=== PATIENT | female | born 1945 | race Caucasian/White ===

== ENCOUNTER 2018-02-03 15:41 | Emergency (ER) | payer MEDICARE ==
--- NOTE | 2018-02-03 16:57 | RAD ---
INDICATION: Left forefoot pain after trip and fall injury 5 days earlier COMPARISON: Similar x-ray dated June 10, 2011 TECHNIQUE: 3 views of the left foot were obtained. FINDINGS: At the proximal phalanx of the left fourth toe, best depicted on the oblique view images, there is a lucent line spanning the diaphysis and proximal metaphysis of the bone. Otherwise the remaining adequately corticated bones are properly aligned. Joint spaces appear maintained. Stable degenerative changes include enthesophyte formation at the insertion site of the Achilles tendon and origin of the plantar fascia on the calcaneal tubercle. IMPRESSION: POSSIBLE NONDISPLACED FRACTURE INVOLVING THE PROXIMAL POLE OF THE LEFT FOURTH TOE PROXIMAL PHALANX.
--- NOTE | 2018-02-03 16:59 | ED ---
Lower Extremity - HPI Summary HPI Summary: Pt. is a 72 y.o female who presents to the ER for a left toe/foot injury that occurred 6 days ago. Pt. states she tripped in her bedroom and hit left foot off of dresser. Pt. states she is able to ambulate but with pain. Pt. presents today because pain is not improving. Symptoms are mild in severity. Walking and touching affected area makes symptoms worse. Rest makes symptoms better. - History of Current Complaint Chief Complaint: EDExtremityLower Stated Complaint: LT FT TOE INJURY Time Seen by Provider: 02/03/18 15:58 Hx Obtained From: Patient Mechanism Of Injury: Other - Hit left foot off of dresser Onset of Pain: Days - 6 Onset/Duration: Days - 6 Severity Initially: Mild Severity Currently: Mild Pain Intensity: 6 Timing: Intermittent Location: Other - Left foot and digits Character Of Pain: Throbbing Associated Signs And Symptoms: Positive: Swelling, Bruising Aggravating Factor(s): Standing, Ambulation Alleviating Factor(s): Rest Able to Bear Weight: Yes - with pain - Risk Factors DVT Risk Factors: Negative Septic Arthritis Risk Factor: Negative - Allergies/Home Medications Allergies/Adverse Reactions: Allergies Allergy/AdvReac Type Severity Reaction Status Date / Time MS Peanut-containing Drug Allergy Hives/Diff. Verified 02/03/18 16:14 Products Breathing/I [Peanut-containing Drug tching Products] PMH/Surg Hx/FS Hx/Imm Hx Previously Healthy: Yes Endocrine/Hematology History: Denies: Hx Diabetes, Hx Anemia Cardiovascular History: Reports: Hx Hypercholesterolemia, Hx Hypertension Denies: Hx Pacemaker/ICD GI History: Reports: Hx Gastroesophageal Reflux Disease, Hx Hiatal Hernia Denies: Hx Jaundice History: Denies: Hx Renal Disease Musculoskeletal History: Reports: Hx Osteoporosis, Other Musculoskeletal History - 1983-RUPTURED DISC- HAD INJECTION FOR Sensory History: Reports: Hx Contacts or Glasses Denies: Hx Hearing Aid Opthamlomology History: Reports: Hx Contacts or Glasses Psychiatric History: Reports: Hx Depression - SLIGHT WITH ONSET WITH NEW DIAGNOSIS Denies: Hx Panic Disorder - Cancer History Cancer Type, Location and Year: COLON CANCER WITH PARTIAL COLONECTOMY Hx Chemotherapy: No - Surgical History Surgery Procedure, Year, and Place: CHOLECYSTECTOMY 1990. TONSILLECTOMY. HYSTERECTOMY 1974. BREAST BIOPSY BENIGN 2003. TOOTH EXTRACTIONS 2006. PARTIAL COLONECTOMY 2016 Hx Anesthesia Reactions: No Infectious Disease History: No Infectious Disease History: Denies: Traveled Outside the [place] in Last 30 Days - Social History Alcohol Use: None Substance Use Type: Reports: None Smoking Status (MU): Former Smoker Type: Cigarettes Amount Used/How Often: 1 PACK EVERY 2 DAYS X 23 YEARS Have You Smoked in the Last Year: No Review of Systems Constitutional: Negative Positive: Other - Left foot and toe pain Positive: Bruising All Other Systems Reviewed And Are Negative: Yes Physical Exam Triage Information Reviewed: Yes Vital Signs On Initial Exam: Initial Vitals Temp Pulse Resp BP Pulse Ox 98.6 F 77 20 141/71 96 02/03/18 15:44 02/03/18 15:44 02/03/18 15:44 02/03/18 15:44 02/03/18 15:44 Vital Signs Reviewed: Yes Appearance: Positive: Well-Appearing Skin: Positive: Warm, Dry Head/Face: Positive: Normal Head/Face Inspection Eyes: Positive: Normal Musculoskeletal: Positive: Other - Mild edema and ecchymosis noted to the distal left foot. Pain on palpation to the left 5th, 4th and 3rd digits. No laceraiton. No signs of infection. No proximal ankle, knee or hip pain. No calf tenderness or edema. Neurological: Positive: Normal Psychiatric: Positive: Normal AVPU Assessment: Alert Diagnostics - Vital Signs Vital Signs Temp Pulse Resp BP Pulse Ox 02/03/18 15:44 98.6 F 77 20 141/71 96 - Laboratory Lab Statement: Any lab studies that have been ordered have been reviewed, and results considered in the medical decision making process. Lower Extremity Course/Dx - Course Course Of Treatment: Pt. presenting with a minor foot/toe injury. Xrays per myself and radiology show a fracture to the proximal 4th digit of left foot. Results discussed with pt. Bruno tape and post op shoe placed. Pt. was given INFO for ortho. for close f.u. Work excuse given. Advised to ice and elevate intermittently. Tylenol or Motrin for pain as directed. Pt. understands and agrees with plan. - Diagnoses Differential Diagnosis/HQI/PQRI: Positive: Fracture (Closed), Sprain, Strain Provider Diagnoses: Toe fracture Discharge - Sign-Out/Discharge Documenting (check all that apply): Discharge - Discharge Plan Condition: Good Disposition: HOME Patient Education Materials: Toe Fracture (ED) Forms: *Work Release Referrals: Juan Lopez MD [Medical Doctor] - Yonis Almodovar MD [Primary Care Provider] - Additional Instructions: Call orthopedics for a close follow up appointment Wear splint for comfort Ice and elevate intermittently Activity as tolerated Tylenol or Motrin for pain as directed Return to ER if symptoms change or worsen - Billing Disposition and Condition Condition: GOOD Disposition: HOME
[2018-02-03 18:10] VITALS: BP 142/72
== END 2018-02-03 18:08 | disposition home or self-care (01) ==
LOC: ED 15:41
DX: S92.512A Displaced fracture of proximal phalanx of left lesser toe(s), initial encounter for closed fracture (principal); W01.0XXA Fall on same level from slipping, tripping and stumbling without subsequent striking against object, initial encounter; Y92.9 Unspecified place or not applicable; F17.210 Nicotine dependence, cigarettes, uncomplicated
CPT/HCPCS: 99282

== ENCOUNTER 2018-08-03 19:53 | Emergency (ER) | payer MEDICARE ==
[2018-08-03] MEDS ORDERED: Diazepam TAB(*) 5 MG PO ONE (22:11)
--- NOTE | 2018-08-03 23:05 | ED ---
Back Pain - HPI Summary HPI Summary: Patient complains of backache 1 week, worse today. Pain described as sharp, no radiation, no urinary retention, no change in bowel movement. Denies truma, fever, cough, sore sore throat, CP, SOB, N/V/D, abdominal pain, change in urine , vaginal symptoms, change in BM. Medical history is HTN, HDL, GERD. - History of Current Complaint Chief Complaint: EDBackInjuryPain Stated Complaint: BACK PAIN Time Seen by Provider: 08/03/18 21:26 Hx Obtained From: Patient Onset/Duration: Sudden Onset Onset/Duration: Started Days Ago Timing: Constant Back Pain Location: Is Discrete @ Severity Initially: Moderate Severity Currently: Moderate Pain Intensity: 8 Pain Scale Used: 0-10 Numeric Character: Sharp Aggravating Symptom(s): Movement Alleviating Symptom(s): Position Associated Signs And Symptoms: Positive: Negative - Allergies/Home Medications Allergies/Adverse Reactions: Allergies Allergy/AdvReac Type Severity Reaction Status Date / Time peanut Allergy Hives, Verified 08/03/18 20:38 difficulty breathing, and itching PMH/Surg Hx/FS Hx/Imm Hx Endocrine/Hematology History: Denies: Hx Diabetes, Hx Anemia Cardiovascular History: Reports: Hx Hypercholesterolemia, Hx Hypertension Denies: Hx Pacemaker/ICD GI History: Reports: Hx Gastroesophageal Reflux Disease, Hx Hiatal Hernia Denies: Hx Jaundice History: Denies: Hx Renal Disease Musculoskeletal History: Reports: Hx Osteoporosis, Other Musculoskeletal History - 1983-RUPTURED DISC- HAD INJECTION FOR Sensory History: Reports: Hx Contacts or Glasses Denies: Hx Hearing Aid Opthamlomology History: Reports: Hx Contacts or Glasses Psychiatric History: Reports: Hx Depression - SLIGHT WITH ONSET WITH NEW DIAGNOSIS Denies: Hx Panic Disorder - Cancer History Cancer Type, Location and Year: COLON CANCER WITH PARTIAL COLONECTOMY Hx Chemotherapy: No - Surgical History Surgery Procedure, Year, and Place: CHOLECYSTECTOMY 1990. TONSILLECTOMY. HYSTERECTOMY 1974. BREAST BIOPSY BENIGN 2003. TOOTH EXTRACTIONS 2006. PARTIAL COLONECTOMY 2016 Hx Anesthesia Reactions: No - Immunization History Immunizations Up to Date: Yes Infectious Disease History: No Infectious Disease History: Denies: Traveled Outside the [place] in Last 30 Days - Social History Alcohol Use: None Substance Use Type: Reports: None Smoking Status (MU): Former Smoker Type: Cigarettes Amount Used/How Often: 1 PACK EVERY 2 DAYS X 23 YEARS Have You Smoked in the Last Year: No Review of Systems Constitutional: Negative Eyes: Negative ENT: Negative Cardiovascular: Negative Respiratory: Negative Gastrointestinal: Negative Genitourinary: Negative Musculoskeletal: Other Skin: Negative Neurological: Negative Psychological: Normal All Other Systems Reviewed And Are Negative: Yes Physical Exam - Summary Physical Exam Summary: Paraspinal muscles of T-spine. PMS intact distally in bilateral lower extremities. Triage Information Reviewed: Yes Vital Signs On Initial Exam: Initial Vitals Temp Pulse Resp BP Pulse Ox 98.6 F 76 20 155/87 95 08/03/18 19:54 08/03/18 19:54 08/03/18 19:54 08/03/18 19:54 08/03/18 19:54 Vital Signs Reviewed: Yes Appearance: Positive: Well-Appearing Skin: Positive: Warm Head/Face: Positive: Normal Head/Face Inspection Eyes: Positive: Normal Neck: Positive: Supple Respiratory/Lung Sounds: Positive: Clear to Auscultation Cardiovascular: Positive: Normal Abdomen Description: Positive: Nontender Musculoskeletal: Positive: Normal Neurological: Positive: Normal Psychiatric: Positive: Normal AVPU Assessment: Alert - [place] Coma Scale Best Eye Response: 4 - Spontaneous Best Motor Response: 6 - Obeys Commands Best Verbal Response: 5 - Oriented Coma Scale Total: 15 Diagnostics - Vital Signs Vital Signs Temp Pulse Resp BP Pulse Ox 08/03/18 22:16 16 08/03/18 19:54 98.6 F 76 20 155/87 95 - Laboratory Lab Statement: Any lab studies that have been ordered have been reviewed, and results considered in the medical decision making process. Back Pain Course/Dx - Course Course Of Treatment: Patient complains of backache 1 week, worse today. Pain described as sharp, no radiation, no urinary retention, no change in bowel movement. Denies truma, fever, cough, sore sore throat, CP, SOB, N/V/D, abdominal pain, change in urine, vaginal symptoms, change in BM. Medical history is HTN, HDL, GERD. Physical exam:Paraspinal muscles of T-spine. PMS intact distally in bilateral lower extremities. Back pain Improved with Valium. Rx for same 5 tablets. - Diagnoses Provider Diagnoses: Back spasm Discharge - Sign-Out/Discharge Documenting (check all that apply): Patient Departure - Discharge Plan Condition: Stable Disposition: HOME Prescriptions: Diazepam TAB(*) [Valium TAB(*)] 5 mg PO DAILY 5 Days #5 tab MDD 2 tabs Patient Education Materials: Muscle Spasm (ED) Referrals: Yonis Almodovar MD [Primary Care Provider] - Belen El MD [Medical Doctor] - Additional Instructions: If back pain does not improve over the next few days follow-up with orthopedics Dr. El. Or return to the ED for any new or worsening symptoms - Billing Disposition and Condition Condition: STABLE Disposition: Home
[2018-08-04 03:42] VITALS: BP 131/76
== END 2018-08-03 23:15 | disposition home or self-care (01) ==
LOC: ED 19:53
DX: M62.830 Muscle spasm of back (principal)
CPT/HCPCS: 99282; A9270-GY

== ENCOUNTER 2019-05-04 20:59 | Emergency (ER) | payer MEDICARE ==
[~2019-05-04 20:59] MED LIST: Lactated Ringers 1000 ML Bag* 1,000 ML IV ONE
[2019-05-04] MEDS ORDERED: Lidocaine 1% INJ* 10 MG/ML 30 ML SDV INJ ONE (21:15)
[2019-05-04] MEDS ORDERED: Lidocaine 1% INJ* 10 MG/ML 30 ML SDV ONE (21:15)
--- NOTE | 2019-05-04 21:18 | ED ---
Head Injury - HPI Summary HPI Summary: A 74 y/o female presents to [facility] with a chief complaint of a fall at around 20: 40 tonight. Per family, the patient fell backwards from a standing position and might of hit the back of her head on a metal railing, or the steps. She reports numbness on her left side but denies LOC. She denies N/V, but reports headache, neck pain and fatigue. She rated her pain as a 6/10 in severity. She denies taking blood thinners. She is unsure when her last tetanus shot was. - History Of Current Complaint Stated Complaint: FALL, HEAD INJURY PER PT Hx Obtained From: Patient Mechanism Of Injury: Fall From A Standing Position Onset/Duration: Started Minutes Ago, Still Present Onset of Pain: Immediate, Minutes, Post Accident, Prior to Arrival Severity Currently: Moderate Severity Initially: Moderate Pain Intensity: 6 Pain Scale Used: 0-10 Numeric Character: Unable to describe Aggravating Factor(s): Other: - nothing Associated Signs And Symptoms: Numbness - Allergies/Home Medications Allergies/Adverse Reactions: Allergies Allergy/AdvReac Type Severity Reaction Status Date / Time peanut Allergy Hives, Verified 05/04/19 21:13 difficulty breathing, and itching PMH/Surg Hx/FS Hx/Imm Hx Endocrine/Hematology History: Denies: Hx Diabetes, Hx Anemia Cardiovascular History: Reports: Hx Hypercholesterolemia, Hx Hypertension Denies: Hx Pacemaker/ICD GI History: Reports: Hx Gastroesophageal Reflux Disease, Hx Hiatal Hernia Denies: Hx Jaundice History: Denies: Hx Renal Disease Musculoskeletal History: Reports: Hx Osteoporosis, Other Musculoskeletal History - 1983-RUPTURED DISC- HAD INJECTION FOR Sensory History: Reports: Hx Contacts or Glasses Denies: Hx Hearing Aid Opthamlomology History: Reports: Hx Contacts or Glasses Psychiatric History: Reports: Hx Depression - SLIGHT WITH ONSET WITH NEW DIAGNOSIS Denies: Hx Panic Disorder - Cancer History Cancer Type, Location and Year: COLON CANCER WITH PARTIAL COLONECTOMY Hx Chemotherapy: No - Surgical History Surgery Procedure, Year, and Place: CHOLECYSTECTOMY 1990. TONSILLECTOMY. HYSTERECTOMY 1974. BREAST BIOPSY BENIGN 2003. TOOTH EXTRACTIONS 2006. PARTIAL COLECTOMY 2016 Hx Anesthesia Reactions: No Infectious Disease History: No Infectious Disease History: Denies: Traveled Outside the [place] in Last 30 Days - Family History Known Family History: Negative: Blood Disorder - Social History Alcohol Use: None Substance Use Type: Reports: None Smoking Status (MU): Former Smoker Type: Cigarettes Amount Used/How Often: 1 PACK EVERY 2 DAYS X 23 YEARS Have You Smoked in the Last Year: No Review of Systems Positive: Fatigue. Negative: Fever Negative: Vomiting, Nausea Positive: Other - positive: neck pain Positive: Other - positive: laceration to back of head Positive: Headache, Numbness All Other Systems Reviewed And Are Negative: Yes Physical Exam - Summary Physical Exam Summary: Constitutional: Well-developed, Well-nourished, Alert. (-) Distressed Skin: Warm, Dry HENT: Normocephalic; Atraumatic Eyes: Conjunctiva normal, EOMI Neck: Musculoskeletal ROM normal neck. no midline C-spine tenderness, (-) JVD, ( -) Stridor, (-) Tracheal deviation Cardio: Rhythm regular, rate normal, Heart sounds normal; Intact distal pulses; The pedal pulses are 2+ and symmetric. Radial pulses are 2+ and symmetric. Pulmonary/Chest wall: Effort normal. (-) Respiratory distress, (-) Wheezes, (-) Rales Abd: Soft, (-) tenderness, (-) Distension, (-) Guarding, (-) Rebound Musculoskeletal: (-) Edema Neuro: Alert, Oriented x3, gait not tested yet because the patient was not feeling well. She denies dizziness but has a headache and neck muscle stiffness. She can walk because she walked into her room. Psych: Mood and affect Normal Triage Information Reviewed: Yes Vital Signs On Initial Exam: Initial Vitals Temp Pulse Resp BP Pulse Ox 98.3 F 85 18 148/89 95 05/04/19 21:04 05/04/19 21:04 05/04/19 21:04 05/04/19 21:04 05/04/19 21:04 Vital Signs Reviewed: Yes - [place] Coma Scale Best Eye Response: 4 - Spontaneous Best Motor Response: 6 - Obeys Commands Best Verbal Response: 5 - Oriented Coma Scale Total: 15 Procedures - Laceration/Wound Repair 1 Location: head Description: Linear Anesthesia: Lido Closure: [place] #__ - 2 Diagnostics - Vital Signs Vital Signs Temp Pulse Resp BP Pulse Ox 05/04/19 21:04 98.3 F 85 18 148/89 95 - Laboratory Lab Statement: Any lab studies that have been ordered have been reviewed, and results considered in the medical decision making process. - CT Brain CT Interpretation Completed By: Radiologist Summary of CT Findings: 1. No traumatic intracranial abnormalities. 2. Age- related atrophy and mild chronic small vessel ischemic disease. ED physician has reviewed this imaging report. Cervical spine CT Interpretation Completed By: Radiologist Summary of CT Findings: 1. No cervical spine traumatic abnormalities. 2. Mild multilevel cervical spondylopathy. 3. Multiple thyroid nodules. Followup thyroid ultrasound recommended. ED physician has reviewed this imaging report. Head Injury Course/Dx Course Of Treatment: A 74 y/o female presents to [facility] with a chief complaint of a fall at around 20:40 tonight. The physical exam revealed no midline C- spine tenderness, and that the patient is Alert, Oriented x3, gait not tested yet because the patient was not feeling well. She denies dizziness but has a headache and neck muscle stiffness. She can walk because she walked into her room. Two araseli were placed and the wound is now well approximated. Her staple removal time is [address] impression: 1. No traumatic intracranial abnormalities. 2. Age-related atrophy and mild chronic small vessel ischemic disease. Cervical spine CT impression: 1. No cervical spine traumatic abnormalities. 2. Mild multilevel cervical spondylopathy. 3. Multiple thyroid nodules. Followup thyroid ultrasound recommended. The patient will be discharged and follow up with her PCP about her thyroid. The patient is agreeable with this plan. - Diagnoses Provider Diagnoses: Concussion Discharge - Sign-Out/Discharge Documenting (check all that apply): Patient Departure - DC Patient Received Moderate/Deep Sedation with Procedure: No - Discharge Plan Condition: Good Disposition: HOME Patient Education Materials: Concussion (ED), Staple Care (ED) Forms: *Work Release Referrals: Yonis Almodovar MD [Primary Care Provider] - - Billing Disposition and Condition Condition: GOOD Disposition: Home - Attestation Statements Document Initiated by Caseyibe: Yes Documenting Scribe: Vasile Connolly Provider For Whom Yoshi is Documenting (Include Credential): Billy Wong MD Scribe Attestation: Vasile Rios scribed for Billy Wong MD on 05/05/19 at 0600. Scribe Documentation Reviewed: Yes Provider Attestation: The documentation as recorded by the Vasile elias accurately reflects the service I personally performed and the decisions made by me, Billy Wong MD Status of Scribe Document: Viewed
[2019-05-04] MEDS ORDERED: diPHENhydraMINE IV* 50 MG/ML 1 ml VIAL (BENADRYL) IV ONE (21:22)
[2019-05-04] MEDS ORDERED: fentaNYL* 50 MCG/ML 2 ML VIAL (100 MCG VIAL) IV SLOW PU ONE (21:22)
[2019-05-04] MEDS ORDERED: Magnesium Sulfate 2 GM IV* 2 GM/50 ML BAG IVPB ONE (21:22)
[2019-05-04] MEDS ORDERED: Metoclopramide IV* 5 MG/ML 2 ML VIAL IV SLOW PU ONE (21:23)
[2019-05-04] MEDS ORDERED: Lactated Ringers 1000 ML Bag* 1,000 ML IV SCH (22:00)
[2019-05-04 23:36] VITALS: BP 138/72
== END 2019-05-04 23:34 | disposition home or self-care (01) ==
LOC: ED 20:59
DX: S06.0X9A Concussion with loss of consciousness of unspecified duration, initial encounter (principal); W19.XXXA Unspecified fall, initial encounter; I10 Essential (primary) hypertension; Z87.891 Personal history of nicotine dependence
CPT/HCPCS: 12011; 70450; 72125; 96361; 96365; 96372; 96375; 99282; J1200; J2765; J3010; J3475

== ENCOUNTER 2024-01-05 10:36 | Inpatient (IN) ==
[2024-01-05 11:30] LABS: ABS Eosinophils 0.2 10^3/uL (0.0-0.5); ABS Lymphocytes 1.6 10^3/uL (1.0-4.8); ABS Monocytes 0.4 10^3/uL (0.0-0.9); ABS Neutrophils 4.3 10^3/uL (1.5-7.6); Hematocrit 39.4 % (35-45); Hemoglobin 13.3 g/dL (11.5-14.3); Mean Corpuscular Hemoglobin 29.9 pg (27-33); Mean Corpuscular Hgb Conc 33.7 g/dL (31-36); Mean Corpuscular Volume 88.8 fL (80-97); Mean Platelet Volume 7.6 fL (7.5-11.2); Platelet Count 286 10^3/uL (150-450); Red Blood Count 4.44 10^6/uL (3.63-4.92); Red Cell Distribution Width 14.5 % (12-17); White Blood Count 6.6 10^3/uL (3.8-11.8)
[2024-01-05 11:36] LABS: Activated Partial Thrombo Time 31.6 seconds (26.0-38.0); INR 0.98 (0.83-1.13)
[2024-01-05 11:55] LABS: Albumin 4.3 g/dL (3.2-5.2); Albumin/Globulin Ratio 1.7 (1-3); Calcium 9.6 mg/dL (8.6-10.3); Creatinine, Serum 0.84 mg/dL (0.51-0.95); Direct Bilirubin 0.1 mg/dL (0.03-0.18); Globulin 2.5 g/dL (2-4); HDL Cholesterol 51.5 mg/dL; Indirect Bilirubin 0.6 mg/dL (0.3-1.0); Potassium 4.2 mmol/L (3.5-5.0); Total Bilirubin 0.7 mg/dL (0.2-1.0); Total Protein 6.8 g/dL (6.4-8.9); eGFR CKD-EPI 71.5 (>60)
[2024-01-05 17:50] LABS: Urine Specific Gravity 1.049 (1.002-1.030)
[2024-01-05 17:51] LABS: Urine Appearance Clear; Urine Bilirubin Negative (Negative); Urine Blood Negative (Negative); Urine Color Light-Yellow; Urine Glucose Negative (Negative); Urine Ketones Negative (Negative); Urine Nitrite Negative (Negative); Urine Protein Trace (Negative); Urine Urobilinogen Negative (Negative); Urine pH 5.5 (5.0-8.0)
[2024-01-05] MEDS: Enoxaparin 40 MG/0.4 ML SYR SUBCUT SCH (20:25)
[2024-01-06 06:55] LABS: Calcium 9.5 mg/dL (8.6-10.3); Creatinine, Serum 0.75 mg/dL (0.51-0.95); Magnesium 1.9 mg/dL (1.9-2.7); Potassium 4.6 mmol/L (3.5-5.0); eGFR CKD-EPI 81.9 (>60)
[2024-01-06 07:10] LABS: TSH Ultra Thyroid Stim Horm 2.11 mcIU/mL (0.34-5.60)
[2024-01-06] MEDS: Iodixanol 320 (CONTRAST) 100 ML SDV IV ONE (08:18)
[2024-01-07 06:35] LABS: Hematocrit 37.2 % (35-45); Hemoglobin 12.5 g/dL (11.5-14.3); Mean Corpuscular Hgb Conc 33.7 g/dL (31-36); Mean Corpuscular Volume 88.9 fL (80-97); Mean Platelet Volume 7.5 fL (7.5-11.2); Platelet Count 254 10^3/uL (150-450); Red Blood Count 4.18 10^6/uL (3.63-4.92); Red Cell Distribution Width 14.2 % (12-17); White Blood Count 6.4 10^3/uL (3.8-11.8)
[2024-01-07 07:27] LABS: Creatinine, Serum 0.81 mg/dL (0.51-0.95); Magnesium 1.8 mg/dL (1.9-2.7); eGFR CKD-EPI 74.7 (>60)
[2024-01-07 10:32] VITALS: BP 136/73
== END 2024-01-07 13:00 | disposition home or self-care (01) | DRG 65 ==
LOC: ED 10:36 → EDHOLD 10:36 → MEDTELE 13:31
PROVIDERS: ADMIT Hospitalist; ATTEND Hospitalist